=== PATIENT | female | born 1940 | race Caucasian/White ===

== ENCOUNTER → 2019-09-24 12:55 | Outpatient (CLI) | payer MEDICARE, OTHER, SELFPAY ==
--- NOTE | 2019-09-24 | DI.MRI.S_ITS ---
PROCEDURE: MR KNEE RT WO CON INDICATIONS: Unilateral primary osteoarthritis, right knee TECHNIQUE: Noncontrast sagittal PD fast spin echo and T2 fast spin echo with fat saturation, sagittal 3-D FLASH with fat saturation; coronal T1 spin echo and PD fast spin echo with fat saturation, and axial PD fast spin echo with fat saturation through the knee. COMPARISON: None. FINDINGS: Image quality: Excellent. Menisci: Poorly defined circumferential medial meniscal tear, with very macerated appearance of the body, and complete extrusion. Possible meniscal fragments may be within the medial gutter. There is also adjacent large bulky osteophyte Mild truncation of the lateral meniscus free margin. Cruciate ligaments: Anterior cruciate ligament appears intact. Posterior cruciate ligament appears intact. Medial structures: There is medial bowing of the medial collateral ligament, with mild internal signal changes and no complete rupture. There is adjacent soft tissue edema. The appearance could reflect reactive changes to medial compartment pathology, versus low-grade sprain of the MCL. Pes anserinus tendons appear grossly unremarkable. Semimembranosus tendon appears intact. Lateral structures: The lateral collateral ligament intact. Biceps femoris tendon appears intact. Popliteus tendon grossly unremarkable. Iliotibial band appears intact. Anterior structures: Quadriceps tendon intact. Medial and lateral patellofemoral ligaments intact. There is mild patellar tendinopathy. Prepatellar and superficial infrapatellar subcutaneous edema/fluid. Bones and cartilage: No focal marrow contusion or discrete low signal fracture line. Within the medial compartment, full-thickness loss of the femoral and tibial articular cartilage Within the lateral compartment, diffuse partial-thickness loss of the femoral and tibial articular cartilage Within the patellofemoral compartment, diffuse partial-thickness loss of the femoral and tibial articular cartilage Joint space: Moderate joint effusion. Ganglion cyst is incidentally noted at the proximal tibiofibular articulation. Possible small loose bodies versus debris or reactive synovitis seen in the medial aspect of the suprapatellar recess IMPRESSION: Poorly defined circumferential medial meniscal tear, with complete extrusion. Cannot exclude displaced meniscal fragment in the medial gutter. Truncation of the free margin of the lateral meniscal body Severe degenerative joint disease, with full thickness medial compartment articular cartilage loss Moderate joint effusion Possible small loose bodies versus debris and/or reactive synovitis involving the medial aspect of the suprapatellar recess. Dictated by: Shlomo West M.D. on 09/24/2019 at 14:46 Approved by: Shlomo West M.D. on 09/24/2019 at 14:52
== END ==
PROVIDERS: PCP Family Medicine; Referring Provider Orthopaedic Surgery; Visit Provider Orthopaedic Surgery
DX: M17.11 Unilateral primary osteoarthritis, right knee (principal); S83.241A Other tear of medial meniscus, current injury, right knee, initial encounter; M25.461 Effusion, right knee
CPT/HCPCS: 73721

== ENCOUNTER → 2021-03-26 13:33 | Outpatient (CLI) | payer MEDICARE, OTHER, SELFPAY ==
[2021-03-26 16:13] LABS: COVID19 -Nasal RAPID Negative (Negative)
== END ==
PROVIDERS: PCP Family Medicine; Visit Provider Physician Assistant
DX: Z20.822 Contact with and (suspected) exposure to COVID-19 (principal); Z01.812 Encounter for preprocedural laboratory examination
CPT/HCPCS: 87635; C9803

== ENCOUNTER 2021-03-30 08:58 | Observation (INO) | payer MEDICARE, OTHER, SELFPAY ==
[2021-03-28 13:52] VITALS: BMI 41.6
[2021-03-29] VITALS (16 sets, daily range): BP systolic 120–191; BP diastolic 64–96; PULSE 56–84; RESP 13–28; TEMP 35.7–36.6; O2SAT 92–100; BMI 41.6
--- NOTE | 2021-03-29 06:40 | DI.RAD.S_ITS ---
PROCEDURE: XR KNEE RT 1TO2V INDICATIONS: right TKA TECHNIQUE: 2 view(s) of the knee acquired. COMPARISON: None. FINDINGS: Bones: Patient is status post knee joint arthroplasty. Hardware components are in expected positions. Visualized bony structures are intact. Soft tissues: Overlying postoperative changes are noted. IMPRESSION: Expected postoperative appearance. Dictated by: Shlomo West M.D. on 03/29/2021 at 15:24 Approved by: Shlomo West M.D. on 03/29/2021 at 15:24
[2021-03-29] MEDS: PREGABALIN 75 MG CAPSULE PO (09:29)
[2021-03-29] MEDS: ACETAMINOPHEN 325 MG TABLET 975 MG PO (09:30)
[2021-03-29] MEDS: CELECOXIB 200 MG CAPSULE PO (09:30)
[2021-03-29] MEDS: VANCOMYCIN 1,000 MG/200 ML PIGGYBACK 200 MG IV (09:32)
[2021-03-29] MEDS: LACTATED RINGERS 1,000 ML 42 ML IV ×2 (09:35→14:09)
--- NOTE | 2021-03-29 10:55 | PM.PREOP ---
Pre-operative Note COVID-19 COVID-19 status: Negative Interval Note History & Physical reviewed/Exam performed by Physician: Yes Changes to H&P: No
--- NOTE | 2021-03-29 10:56 | PM.OP.1 ---
Operative Date/Time/Diagnoses Date of procedure: 03/29/21 Time of procedure: 11:50 Pre-op diagnosis: Right knee osteoarthritis Post-op diagnosis: same Procedure & Clinicians Procedure: Right total knee arthroplasty Same procedure as scheduled: Yes Indications: The patient has had progressively worsening right knee pain with radiographic changes consistent with arthritis. Non-operative management has failed and the patient has requested total knee replacement. The risks, benefits and alternatives to surgery were discussed with the patient prior to proceeding. Risks discussed included, but were not limited to, failure to relieve pain, stiffness, infection, nerve damage, deep venous thrombosis, pulmonary embolism, stroke, coma, heart attack, permanent paralysis and , as well as the potential need for eventual revision of the prosthetic. Surgeon: Lakshmi Smith Generation Technologist: Nellie Schneider Anesthesia Type: General and Spinal Operative Notes Findings: Severe right knee osteoarthritis, good stability Closure Type: primary Specimen(s): none sent Prosthetic devices, grafts, tissues, transplants, or devices: and Nephew Journey BCS 2 size 5 femur, size 4 tibia, +9 poly, oval 35 mm patella 7.5 mm Applied: drain(s) Estimated Blood Loss (mL): 250 Blood products transfused: none Tourniquet time (min): 80 Procedure in detail: The patient was seen in the pre-operative area, where the patient identified the right knee as the operative site and this was marked with my initials. The patient received pre-operative antibiotics, and was taken to the operating room and placed on the operative table in the supine position. After satisfactory anesthesia, a maritime engineer out was performed. The right leg was encircled with a tourniquet about the proximal thigh, and the leg was prepared from the toes to the tourniquet with ChloroPrep in the usual fashion and draped through sterile drapes. The leg was elevated and exsanguinated with Eschmark bandage and the tourniquet inflated to [250] mmHg pressure. The knee was approached through an approximately 18 cm incision centered over the patella and carried into the knee through a medial parapatellar arthrotomy. A portion of the medial and lateral meniscus was resected. Soft tissue was carefully mobilized around the patella the patella was measured with a caliper. Bone was resected from the patella and the patellar height was reconstituted with up an appropriate sized patellar component. A cover was then placed on the patella. A small amount of additional medial and lateral meniscus was resected. The visionare guide fit well to the distal femur. It looked like an appropriate distal femoral cut and the cut was made without difficulty. The rotation was assessed and the appropriate size femoral guide was placed on the distal femur and finishing cuts were made. There was no evidence of notching. The anterior, posterior and chamfer cuts were then made. The posterior osteophytes and soft tissues were then removed. The posterior capsule was injected with part of a mixture of 60 ml 0.25% Marcaine mixed with 20 ml Exparel for post operative pain control. The remainder of this mixture was injected into the capsule and subcutaneous tissues during cement curing. The tibia was prepared and the visionaire guide fit well to the distal tibia. The rotation was assessed. The patient was placed in extension residual medial and lateral meniscus as well as any residual bone was carefully resected. [No] additional tibia was resected. Hemostasis was achieved especially posteriorly. Additional local was injected into the posterior capsule. The extension gap was assessed and additional releases for gap balancing were performed as necessary. It was checked with the gap food products sales representative. The femoral component was trial was placed and the notch was finished. Trial tibial and femoral components were then placed and the knee placed through a range of motion. Range of motion was [0-130], with good stability throughout the range. The trials were then removed, and the tibia was finished. The bone was prepared with pulsatile lavage, and dried with a sponge. Cement was applied and the final prosthetics placed. Excess cement was removed during and after cement curing. A brief Betadine soak was performed. After confirming there was no extruded cement posteriorly, the final tibial insert was placed. The knee was copiously irrigated and the tourniquet deflated. Hemostasis was obtained with the Bovie. A drain was placed and brought out superolaterally. The capsule was closed with interrupted vicryl suture. The subcutaneous layer was closed with barbed sutures, and the skin with a running 3-0 V-Lock suture and skin kayli. An bonilla Ag dressing was applied and the patient was taken to recovery having tolerated the procedure well. Complications: none Post-operative Condition: stable Disposition: Acute Care Plan for aftercare: The patient will be maintained on a standard total knee replacement protocol with weight bearing as tolerated. The patient will receive aspirin and sequential compression devices for DVT prophylaxis. The patient will be discharged home when safe for the home environment.
[2021-03-29] MEDS: CEFAZOLIN 1 GM VIAL 2 GM IV ×2 (12:10→19:44)
[2021-03-29] MEDS: TRANEXAMIC ACID 1,000 MG VIAL 2000 MG INJ ×2 (12:11→14:05)
[2021-03-29] MEDS: DEXAMETHASONE 4 MG/ML VIAL 5 MG INJ (12:23)
--- NOTE | 2021-03-29 12:44 | SUR.OPER ---
Supine on padded OR bed. Pillow under head, arms secured on padded armboards <90 degree abduction. Safety belt across torso. Non-operative leg secured with tape over blanket over lower leg. Operative leg secured in [place]. Foam padded brace at thigh of operative leg.
[2021-03-29] MEDS: BUPIVACAINE LIPOSOME 266 MG/20 ML VIAL INJ (12:53)
[2021-03-29] MEDS: BUPIVACAINE 0.25% W/ EPI 30 ML VIAL 60 ML INJ (12:53)
[2021-03-29] MEDS: SODIUM CHLORIDE IRRIG SOLUTION 250 ML, POVIDONE-IODINE SPONGE STICKS 1 APPLIC IRR (12:54)
[2021-03-29] MEDS: ONDANSETRON 4 MG/2 ML INJ IV ×3 (14:52→21:29)
[2021-03-29] MEDS: ePHEDrine 50 MG/ML VIAL IM (15:14)
[2021-03-29] MEDS: HALOPERIDOL 5 MG/ML VIAL 1 MG IV ×2 (15:43→15:59)
--- NOTE | 2021-03-29 15:49 | SUR.PHASEI ---
Pt arrived to PACU dry heaving, xray taken of extremety, pt not having any pain, just complaining of nausea, Dr. Pino to bedside, different med ordered and administrated.
--- NOTE | 2021-03-29 16:33 | SUR.PHASEI ---
While in PACU cool wash cloth on foehead, quease ease to bedside and ice pack behind neck to help with nausea. One dose of ondansetron given, ephedrine IM given along wioth Haldol. Nausea finally subsided after 2nd dose of haldol, pt transfered up to room 210. Left in stable condition, nurses and research chef with pt, bed low, locked, scd's on. Pt had one episode of dry heaves in elevator. Call herron in hand.
--- NOTE | 2021-03-29 16:50 | PC.NURSE ---
Addendum entered by Anh Smith R.N. 03/29/21 22:41: Pt unable to take po meds due to nausea. Pt was incontinent of urine. Linen was change and pt now has a brief. Original Note: pt admitted from PACU at 1625. alert to selt, on 2 L NC satting 98%. pt still feeling nauseous but better. SCD's in place. Incision SDI with BOBBY dressing and hemovac. At 1640 Hemovac unclamp. will continue to monitor.
[2021-03-29] MEDS: ONDANSETRON 4 MG ODT PO (17:05)
[2021-03-29] MEDS: LACTATED RINGERS 1,000 ML 100 ML IV (17:05)
--- NOTE | 2021-03-29 23:47 | PC.NURSE ---
Pt wakens easily to voice. Currently denies surgical pain to right knee. Admits to baseline neuropathy to feet BL unchanged postoperatively. Able to ankle wave. BL calf scd's in place. Palpable pedal pulses slightly weaker right foot. Equally cool extremities. Pt currently denies nausea and is taking saltines sparingly. Bowel tones are rare. Abdomen is soft. 02 2L per nc oxygen level 99% per continuous monitor. Pt does admit to snoring with sleep, but has not had sleep study. Head of bed elevated to enhance respiratory effort.
[2021-03-30] VITALS (9 sets, daily range): BP systolic 120–147; BP diastolic 62–70; PULSE 64–74; RESP 14–20; TEMP 35.9–37.1; O2SAT 95–99
[2021-03-30] MEDS: IBUPROFEN 400 MG TABLET PO ×6 (01:28→20:09)
[2021-03-30] MEDS: LACTATED RINGERS 1,000 ML 100 ML IV (01:29)
[2021-03-30] MEDS: CEFAZOLIN 1 GM VIAL 2 GM IV (06:02)
--- NOTE | 2021-03-30 07:10 | PC.NURSE ---
Addendum entered by Jolynn Lee R.N. 03/30/21 09:41: Patient saline locked, tolerating PO fluids and intake, no N/V. Drain discontinued. Patient tolerated. Original Note: Patient A/O x 3, denies pain at this time. Has been tolerating oral intake since 144, denies N/V at this time. RLE dsg CDI, BOBBY intact, HV compressed, unclamped, no drainage. VSS. BS active x 4, no flatus. LR @100cc/hr infusing. Ice pack applied. SCD's on bilaterally. Call light in reach, patient denies needs at this time.
[2021-03-30 07:38] LABS: Hematocrit 37.3 % (36-46); Hemoglobin 12.3 g/dL (12.0-16.0)
--- NOTE | 2021-03-30 08:15 | PM.DS.1 ---
History of Present Illness History of Present Illness Date Patient Seen: 03/30/21 Time Patient Seen: 08:16 Chief complaint: Right Total knee Arthroplasty *OPB* Narrative: The patient is complaining of mild right knee pain this morning, which is well controlled with current pain regimen. Her main concern is nausea and vomiting, which is subsiding this morning. She denies fevers, chills, night sweats. She denies numbness or tingling in bilateral lower extremities, other than her baseline numbness on her left lateral ankle. Overall, she is improving and would like to go home today is safe and cleared by PT and her nausea has subsided Discharge Providers Provider Discharge Date: 03/30/21 Primary care physician: Manuel Woodson MD Consults: 03/29/21 06:40 Consult to Anesthesiology Routine Comment: Consulting Provider: Anesthesiologist Reason for consultation: Regional block for post operative pain control 03/29/21 16:21 Consult to Discharge Planning Routine Comment: Consult to Physical Therapy Evaluate & Treat Comment: Physician Instructions: postop TKA protocol Consult to Respiratory Therapy Evaluate & Treat Comment: Physician Instructions: Evaluate and treat 03/29/21 17:26 Consult to Dietitian, Adult Routine Comment: Reason For Exam: bed fast due to post op nausea and vomiting Discharge provider: Nellie Schneider PA-C Summary Hospital Course Discharge Diagnosis: Right knee osteoarthritis Hospital Course: Procedure: Right total knee arthroplasty Same procedure as scheduled: Yes Indications: The patient has had progressively worsening right knee pain with radiographic changes consistent with arthritis. Non-operative management has failed and the patient has requested total knee replacement. The risks, benefits and alternatives to surgery were discussed with the patient prior to proceeding. Risks discussed included, but were not limited to, failure to relieve pain, stiffness, infection, nerve damage, deep venous thrombosis, pulmonary embolism, stroke, coma, heart attack, permanent paralysis and , as well as the potential need for eventual revision of the prosthetic. Surgeon: Lakshmi Smith Nitriles Lab Technician: Nellie Schneider Anesthesia Type: General and Spinal Operative Notes Findings: Severe right knee osteoarthritis, good stability Closure Type: primary Specimen(s): none sent Prosthetic devices, grafts, tissues, transplants, or devices: and Nephew Journey BCS 2 size 5 femur, size 4 tibia, +9 poly, oval 35 mm patella 7.5 mm Applied: drain(s) Estimated Blood Loss (mL): 250 Blood products transfused: none Tourniquet time (min): 80 Status at Discharge Cognitive/behavioral status at discharge: oriented Functional status at discharge: uses cane/walker Overall status at discharge: patient is progressing back to baseline Exam Vital Signs (past 8 hours): - 03/30/21 05:57 Temperature 98.0 F Pulse Rate 70 Respiratory Rate 16 Blood Pressure 141/70 H Pulse Oximetry 96 Oxygen Delivery Method Room Air,Nasal Cannula Oxygen Flow Rate 2 Narrative Exam Narrative: Pleasant 81-year-old female, resting comfortably in bed, in no acute distress. Incision is clean, dry, intact. Bilateral calves are soft, nontender to palpation. Bilateral lower extremities with grossly normal motor functions. Sensation is mildly decreased on the left lateral ankle, which the patient states is her baseline. Objective Labs Result Diagrams: 03/30/21 06:58 Labs: Laboratory Results - last 24 hr 03/30/21 06:58 Hgb 12.3 Hct 37.3 PFSH Medical History Breast cancer, left (2014) Diverticulitis Dupuytrens contracture Easy bruisability HLD (hyperlipidemia) HTN (hypertension) IBS (irritable bowel syndrome) Jaundice Lower back pain Neuropathy Osteoarthritis Pneumonia PONV (postoperative nausea and vomiting) Surgical History History of arthroplasty of left knee History of carpal tunnel surgery of right wrist History of hysterectomy History of lumpectomy of left breast (2014) History of surgery Hx of abdominal surgery Hx of appendectomy Hx of bilateral cataract extraction Hx of cholecystectomy Hx of hemorrhoidectomy Hx of tonsillectomy Social History household members: spouse Smoking Status: Never smoker alcohol intake: current Discharge Assessment & Plan Assessment and Plan Assessment: Patient is progressing as expected status post right total knee arthroplasty Plan of Treatment: Weight-bearing as tolerated with front wheel walker. Use Tylenol and ibuprofen as needed for pain, tramadol if severe pain. Zofran as needed for nausea Discharge home today, when cleared by PT and nausea has improved Discharge Plan Discharge Plan Patient Disposition: Home Discharge orders & Medications Discharge Orders: Discharge (Order); Ordered 03/30/21 Ordered By: Nellie Schneider Prescriptions: New acetaminophen 500 mg capsule 500 mg PO Q4H PRN (Reason: pain) Qty: 90 RF: 0 aspirin 81 mg Tablet,Delayed Release (Dr/Ec) 81 mg PO BID PRN (Reason: Prevent blood clots [id number]) Qty: 90 RF: 0 ondansetron 4 mg Tablet,Disintegrating 4 mg PO Q4HR PRN (Reason: Nausea) Qty: 20 RF: 0 tramadol 50 mg Tablet 50 mg PO QID PRN (Reason: Pain, Moderate (4-6)) Qty: 42 RF: 0 Continued atorvastatin 20 mg Tablet 20 mg PO DAILY RF: 0 ibuprofen 800 mg Tablet 800 mg PO DAILY PRN (Reason: Pain) RF: 0 lisinopril 5 mg Tablet 5 mg PO BID RF: 0 metoprolol succinate 25 mg Tablet Extended Release 24 Hr 25 mg PO DAILY RF: 0 Follow up/Referrals: Manuel Woodson MD [Primary Care Provider] - Lakshmi Smith MD [Physician] - (10-14 days for postoperative visit) Diet/Activity/Treatments Diet: Diet as Tolerated and Regular Activity: Weight-bearing as tolerated with front wheel walker Continue with home exercises Cold/Heat Therapy: Use ice as needed for pain, protect skin Other treatments: Aspirin 81 mg twice daily x6 weeks to prevent blood clots Skin/Wound/Dressing Care Report to your healthcare provider any signs of infection, such as:: chills, fever, night sweats, unusual drainage and unusual redness Dressing: Okay to shower after 48 hours. Please call the office if dressing becomes wet, soiled, saturated. Visit Report/Discharge Packet Instructions: DI for Knee Replacement Stand Alone Forms: Surgery Discharge Discharge Data Primary Care Provider: Manuel Woodson Attending Provider: Lakshmi Smith Quality VTE Deep Vein Thrombosis/Pulmonary Embolism Present on Admission: Yes
[2021-03-30] MEDS: ASPIRIN EC 81 MG TABLET PO ×2 (09:01→20:09)
[2021-03-30] MEDS: ATORVASTATIN 20 MG TABLET PO (09:01)
[2021-03-30] MEDS: DOCUSATE 100 MG CAPSULE PO ×2 (09:01→20:09)
[2021-03-30] MEDS: lisinopriL 5 MG TABLET PO ×2 (09:01→20:09)
[2021-03-30] MEDS: ACETAMINOPHEN 325 MG TABLET 650 MG PO ×3 (09:01→20:09)
[2021-03-30] MEDS: METOPROLOL ER 25 MG TABLET PO (09:02)
--- NOTE | 2021-03-30 09:40 | PT.IIE ---
Current Diagnoses Unilateral primary osteoarthritis, right knee (03/30/21) Surgery Performed Operation Date: 03/29/21 11:30 Actual Procedures p Total Knee Arthroplasty, Left Knee Cortisone Injection(Right) - Lakshmi Smith MD Medical History (Last Reviewed 03/30/21 @ 08:19 by Nellie Schneider PA-C) Breast cancer, left (2014) Diverticulitis Dupuytrens contracture Easy bruisability HLD (hyperlipidemia) HTN (hypertension) IBS (irritable bowel syndrome) Jaundice Lower back pain Neuropathy Osteoarthritis Pneumonia PONV (postoperative nausea and vomiting) Physical Therapy Inpatient Evaluation/Re-Eval M1 PT/OT-IP Prior Functional Status Start: 03/30/21 13:23 Freq: NEEDED Status: Active Protocol: Document 03/30/21 09:40 AB (Rec: 03/30/21 13:39 AB [email or web address]) Medical Review Prior Functional Status Medical History Reviewed Yes Communication able to make needs known Mobility and Gait pt stated that she is independent with all mobilities and ambulation using SPC Social History Household Members spouse Living Arrangements Apartment/Condo Number of Floors (Floors) One Floor Number of Stairs To Enter/Railing? pt lives at a 2nd level apartment with an elevator to get to her floor; no steps to enter Home Environment High Toilet,Walk in Shower, Elevator Home Equipment Front Wheel Walker,Straight Cane,Raised Toilet Seat Without Armrests,Shower Seat without Backrest,Hand Held Shower,Grab Bars In Shower Additional Social History Comment stated that her friend who was an NAC can also stay with her to assist her M2 PT-IP Current Condition Start: 03/30/21 13:23 Freq: NEEDED Status: Active Protocol: Document 03/30/21 09:40 AB (Rec: 03/30/21 13:39 AB [email or web address]) Physical Therapy Current Condition Current Condition Evaluation Date 03/30/21 Treatment Diagnosis s/p R TKA; difficulty in walking Onset Date 03/29/21 Weight Bearing Status Weight Bearing Status Weight Bear as Tolerated Allowed Weight Bearing Amount (enter % RLE WBAT or #) (%) M3 PT-IP Subjective Start: 03/30/21 13:23 Freq: NEEDED Status: Active Protocol: Document 03/30/21 09:40 AB (Rec: 03/30/21 13:39 AB [id number]) Subjective Physical Therapy Visit Type Type Initial Evaluation Visit Start Time 09:40 Visit Stop Time 10:45 Total Visit Minutes 65 Number of INFANTRY WEAPONS CREWMEMBER Visits 0 Physical Therapy Visit Comments Patient Comments pt is agreeable to do PT Therapy Pain Assessment Pain When Pain Assessed At Rest Pain Present Pain Present Pain Reported Location Right Knee Intensity 1 Scale Used pain increases to 5/10 with mobility Pain Management Techniques Apply Cold,Distraction, Modification of Treatment,Re- positioning,Timing of Activity with Medications M4 PT-IP Mobility and Gait Start: 03/30/21 13:23 Freq: NEEDED Status: Active Protocol: Document 03/30/21 09:40 AB (Rec: 03/30/21 13:39 [id number]) PT-Bed Mobility Assessment Supine to Sit Supine to Sit Standby Assistance PT-Transfer Assessment Sit to and From Stand Sit to and from Stand Moderate Assistance,1 Person Assistance,Use of Upper Extremities Equipment Transfer Assistive Device Gait Belt,Front Wheeled Walker Orthotic/Prosthetic Devices or Brace: No Transfers Transfer Destination Toilet Transfer Technique ambulated Transfer Ability Level of Assist Moderate Assistance,1 Person Assistance,Use of Upper Extremities Comments Mobility Comments completed supine to sit SBA. able to sit on EOB SBA. completed sit to stand mod A and max cues. required 2 attempts to complete task. c/ o increase knee pain. pt requested to use the toilet. ambulated to the toilet using FWW mod A and cues. presents with very slow anson, antalgic gait and decrease LE elevation and step length. required mod A for controlled descent to the toilet. completedsit to stand from the toilet using grab bar and FWW mod A and max cues. mod A for standing balance while completing hygiene care and brief management. ambulated from the toilet to the chair mod A using FWW. c/o nausea midway ambulation. positioned on chair. call light and table placed within reach. set up caregiver training for the afternoon. pt stated that she will see if her spouse or caregiver can come in for training. Gait Assessment Gait Gait Assistance Required: Moderate Assistance Distance (Feet) 10 Able to Maintain Weight Bearing Status Yes During Gait Assistive Devices Assistive Device Gait Belt,Front Wheeled Walker Orthotic/Prosthetic Devices or Brace: No Gait Deviations General Gait Pattern Antalgic,Decreased Stride Length,Decreased Feet Clearance,Step-to Gait Factors Limiting Gait Function Factors Limiting Gait Function Decreased Activity Tolerance, Decreased Strength,Limited Range of Motion,Pain,Poor Balance PT-Balance Assessment Sitting Balance and Reactions Static Sitting Balance Ability Good Dynamic Sitting Balance Ability Fair Standing Balance and Reactions Static Standing Balance Ability Fair Dynamic Standing Balance Ability Poor Device Used FWW M5 PT-IP Objective Assessments Start: 03/30/21 13:23 Freq: NEEDED Status: Active Protocol: Document 03/30/21 09:40 AB (Rec: 03/30/21 13:39 AB [id number]) Orientation Orientation/Cognition Level of Alertness Alert Orientation Name,Age,Birthday,Month,Date, Year,Day of Week,Place, Situation Language Function Ability No Deficits Noted Safety Awareness Decreased Safety Awareness Memory Description No Deficits Noted Gross Range of Motion Lower Extremity ROM Assessment Right Impaired Impairments R knee flexion: ~ 70 deg R knee extension: 15 deg less to 0 Strength Lower Extremity Strength Assessment Right Impaired Hip 3+/5 Knee 3+/5 Coordination Assessment Gross Coordination Gross Coordination WNL Sensation Assessment Sensation Gross Sensation WNL Muscle Tone Muscle Tone WNL Yes M6 PT-IP Treatment Start: 03/30/21 13:23 Freq: NEEDED Status: Active Protocol: Document 03/30/21 09:40 AB (Rec: 03/30/21 13:39 AB [email or web address]) Physical Therapy Treatment Education Education Provided Precautions,Weight Bearing Status,Post-Op Packet,Safety M7 PT-IP Assessment and Plan Start: 03/30/21 13:23 Freq: NEEDED Status: Active Protocol: Document 03/30/21 09:40 AB (Rec: 03/30/21 13:39 AB [email or web address]) PT Summary Assessment and Plan Potential Rehabilitation Potential Good Status of Condition at Evaluation Evolving Summary Impairments Pain,ROM,Strength,Balance, Coordination,Sensation,Tone, Cognition,Bed Mobility, Transfers,Gait,Activity Tolerance Assessment Summary pt requiring mod A with sit to stand and ambulation using FWW. presents with decrease activity tolerance and has to rest after toilet transfers and c/o nausea. informed pt regarding caregiver training this afternoon but pt will see if either spouse or friend can come in. will continue to assess progress. Goals Bed Mobility Goal Independent Transfer Goal Independent,Front Wheeled Walker Gait Goal Independent,Front Wheel Walker Gait Distance 150 Days to Meet Goals 5 Frequency of Treatment Frequency Of Treatment Twice a Day Treatment Plan Physical Therapy Treatment Plan Bed Mobility Training,Transfer Training,Gait Training, Therapeutic Exercise,Balance Retraining,Post Op Education, Discharge Planning,Hot or Cold Pack,Neuromuscular Re-ed, Coordination Retraining,Manual Therapy Precautions Other Precautions RLE WBAT Recommendations To Nursing Amount of Assist Needed 1 Person Assist Discharge Recommendations PT Discharge Recommendations Home with 17/02 Assist Available,Home Health Transportation Needs at Discharge Private Vehicle,Wheelchair/ Cabulance
[2021-03-30] MEDS: TRAMADOL 50 MG TABLET PO ×2 (13:06→22:28)
--- NOTE | 2021-03-30 13:59 | PT.IPTN ---
Current Diagnoses Unilateral primary osteoarthritis, right knee (03/30/21) Surgery Performed Operation Date: 03/29/21 11:30 Actual Procedures p Total Knee Arthroplasty, Left Knee Cortisone Injection(Right) - Lakshmi Smith MD Physical Therapy Treatment Note M2 PT-IP Current Condition Start: 03/30/21 13:23 Freq: NEEDED Status: Active Protocol: Document 03/30/21 09:40 AB (Rec: 03/30/21 13:39 AB [email or web address]) Physical Therapy Current Condition Current Condition Evaluation Date 03/30/21 Treatment Diagnosis s/p R TKA; difficulty in walking Onset Date 03/29/21 Weight Bearing Status Weight Bearing Status Weight Bear as Tolerated Allowed Weight Bearing Amount (enter % RLE WBAT or #) (%) M3 PT-IP Subjective Start: 03/30/21 13:23 Freq: NEEDED Status: Active Protocol: Document 03/30/21 13:59 AB (Rec: 03/30/21 16:32 AB [email or web address]) Subjective Physical Therapy Visit Type Type Treatment Note Visit Start Time 13:59 Visit Stop Time 14:45 Total Visit Minutes 46 Number of SAP BASIS Visits 0 Physical Therapy Visit Comments Patient Comments pt is agreeable to do PT; pt's caregiver friend in room for training Therapy Pain Assessment Pain When Pain Assessed At Rest Pain Present Pain Present Pain Reported Location Right Knee Intensity 3 Scale Used increases to 7/10 with mobility Pain Management Techniques Apply Cold,Distraction, Modification of Treatment,Re- positioning,Timing of Activity with Medications M4 PT-IP Mobility and Gait Start: 03/30/21 13:23 Freq: NEEDED Status: Active Protocol: Document 03/30/21 13:59 AB (Rec: 03/30/21 16:32 AB [id number]) PT-Bed Mobility Assessment Sit to Supine Sit to Supine Standby Assistance Scooting Scooting to Edge of Bed Standby Assistance PT-Transfer Assessment Sit to and From Stand Sit to and from Stand Minimal Assistance,Moderate Assistance,1 Person Assistance ,Use of Upper Extremities Equipment Transfer Assistive Device Gait Belt,Front Wheeled Walker Orthotic/Prosthetic Devices or Brace: No Transfers Transfer Destination Bed Transfer Technique ambulated using FWW Transfer Ability Level of Assist Minimal Assistance,Moderate Assistance,1 Person Assistance ,Use of Upper Extremities Comments Mobility Comments pt sitting on chair and friend in room. caregiver training conducted. educated caregiver on how to use safety belt and how to assist pt. caregiver was able to put safety belt on , assisted pt with sit to stand and ambulation ~ 15 ft using FWW but pt has to sit down and sat on EOB. pt c/o increase knee pain and fatigue . pt rested. educated pt and caregiver on pt's equipement needs and understood. also informed regarding low activity tolerance affecting mobility independence. recommending resting stations at home. pt and caregiver agreed. pt ambulated again in room after resting using FWW min to mod A ~ 20 ft. requested to go back to bed. completed sit to supine SBA and cues. positioned in bed. call light and table placed within reach . ice pack provided. Gait Assessment Gait Gait Assistance Required: Minimum Assistance,Moderate Assistance,1 Person Assist Distance (Feet) 15 Able to Maintain Weight Bearing Status No During Gait Assistive Devices Assistive Device Gait Belt,Front Wheeled Walker Orthotic/Prosthetic Devices or Brace: No Gait Deviations General Gait Pattern Antalgic,Decreased Stride Length,Decreased Feet Clearance,Step-to Gait Factors Limiting Gait Function Factors Limiting Gait Function Decreased Activity Tolerance, Decreased Strength,Limited Range of Motion,Pain,Poor Balance,Poor Safety Awareness M5 PT-IP Objective Assessments Start: 03/30/21 13:23 Freq: NEEDED Status: Active Protocol: Document 03/30/21 09:40 AB (Rec: 03/30/21 13:39 AB [email or web address]) Orientation Orientation/Cognition Level of Alertness Alert Orientation Name,Age,Birthday,Month,Date, Year,Day of Week,Place, Situation Language Function Ability No Deficits Noted Safety Awareness Decreased Safety Awareness Memory Description No Deficits Noted Gross Range of Motion Lower Extremity ROM Assessment Right Impaired Impairments R knee flexion: ~ 70 deg R knee extension: 15 deg less to 0 Strength Lower Extremity Strength Assessment Right Impaired Hip 3+/5 Knee 3+/5 Coordination Assessment Gross Coordination Gross Coordination WNL Sensation Assessment Sensation Gross Sensation WNL Muscle Tone Muscle Tone WNL Yes M6 PT-IP Treatment Start: 03/30/21 13:23 Freq: NEEDED Status: Active Protocol: Document 03/30/21 13:59 AB (Rec: 03/30/21 16:32 AB [id number]) Physical Therapy Treatment Exercises Exercises Heel Slides Education Education Provided Safety Other Treatments Other Treatment Performed educated caregiver regarding pt's HEP M7 PT-IP Assessment and Plan Start: 09/03/21 13:23 Freq: NEEDED Status: Active Protocol: Document 03/30/21 13:59 AB (Rec: 03/30/21 16:32 AB [id number]) PT Summary Assessment and Plan Potential Rehabilitation Potential Good Summary Impairments Pain,ROM,Strength,Balance, Coordination,Sensation,Tone, Cognition,Bed Mobility, Transfers,Gait,Activity Tolerance Progress Towards Goals Slow Progress due to Pain,Slow Progress due to Activity Tolerance Assessment Summary caregiver training conducted and caregiver was able to assist pt with transfers and ambulation. pt continues to have decrease activity tolerance and was only able to ambulate 15-20 ft using FWW min to mod A. pt needs to be able to tolerate more activity and ambulate farther to be able to safely go home. pt has ~ 50 ft from the care to get into the house. informed nurse. will continue to assess progress. Goals Bed Mobility Goal Independent Transfer Goal Independent,Front Wheeled Walker Gait Goal Independent,Front Wheel Walker Gait Distance 150 Days to Meet Goals 5 Frequency of Treatment Frequency Of Treatment Twice a Day Treatment Plan Physical Therapy Treatment Plan Bed Mobility Training,Transfer Training,Gait Training, Therapeutic Exercise,Balance Retraining,Post Op Education, Discharge Planning,Hot or Cold Pack,Neuromuscular Re-ed, Coordination Retraining,Manual Therapy Precautions Other Precautions RLE WBAT Recommendations To Nursing Amount of Assist Needed 1 Person Assist Discharge Recommendations PT Discharge Recommendations Home with 17/02 Assist Available,Home Health Transportation Needs at Discharge Private Vehicle,Wheelchair/ Cabulance
--- NOTE | 2021-03-30 15:50 | CM.IDA ---
Addendum entered by JUDY Shaffer 03/30/21 16:03: According to PT Dior, patient will remain here this evening, likely DC home tomorrow, would benefit from HH. Unsure what agency travels to [place] for HH, will research Original Note: Initial DCP Assessment Note Pt is an 81 yo female, resident of [place], now POD#1 from Rt knee surgery by PCP: Manuel Woodson Payer: NANCY/Iris Reviewed chart, met w/patient to introduce role and review DCP. Patient lives at home w/spouse, who is very [place]. 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 JUDY Shaffer
--- NOTE | 2021-03-30 17:55 | DIET.CONS ---
Dietary Consultation Note Admission Date: 03/30/2021 08:58 Assessment: Nutrition cx for n/v post op. Torrie reports this had subsided this morning and is able to eat adequately. No further nutrition intervention needed. Monitoring/Evaluations: consult BATSHEVA frederick
[2021-03-31] MEDS: IBUPROFEN 400 MG TABLET PO ×2 (03:13→08:06)
[2021-03-31 03:25] VITALS: BP 163/74; PULSE 69; RESP 18; TEMP 36.1; O2SAT 98
--- NOTE | 2021-03-31 04:54 | PC.NURSE ---
Pt is A and O x 4, VSS, able to sleep and eat and void. Uses FWW to BR, steady gait. Rates px 3/10 gets adequate relief from ibuprofen. LS clear, S1, S2. +BTs. Javid dressing CDI and BOBBY green.
[2021-03-31 07:00] VITALS: BP 147/72; PULSE 65; RESP 19; TEMP 35.8; O2SAT 97
[2021-03-31 08:06] VITALS: BP 147/72; PULSE 65
[2021-03-31] MEDS: ACETAMINOPHEN 325 MG TABLET 650 MG PO (08:06)
[2021-03-31] MEDS: ATORVASTATIN 20 MG TABLET PO (08:06)
[2021-03-31] MEDS: lisinopriL 5 MG TABLET PO (08:06)
[2021-03-31] MEDS: DOCUSATE 100 MG CAPSULE PO (08:06)
[2021-03-31] MEDS: ASPIRIN EC 81 MG TABLET PO (08:06)
--- NOTE | 2021-03-31 08:33 | P.DS_ITS ---
History of Present Illness History of Present Illness Date Patient Seen: 03/31/21 Time Patient Seen: 08:33 Chief complaint: Right Total knee Arthroplasty *OPB* Narrative: Refer to previous HPI. Discharge Providers Provider Date of admission: 03/30/21 08:58 Discharge Date: 03/31/21 Primary care physician: Manuel Woodson MD Consults: 03/29/21 06:40 Consult to Anesthesiology Routine Comment: Consulting Provider: Anesthesiologist Reason for consultation: Regional block for post operative pain control 03/29/21 16:21 Consult to Discharge Planning Routine Comment: Consult to Physical Therapy Evaluate & Treat Comment: Physician Instructions: postop TKA protocol Consult to Respiratory Therapy Evaluate & Treat Comment: Physician Instructions: Evaluate and treat 03/29/21 17:26 Consult to Dietitian, Adult Routine Comment: Reason For Exam: bed fast due to post op nausea and vomiting Discharge provider: Rodger Be PA-C Summary Hospital Course Discharge Diagnosis: Right knee osteoarthritis Status post right total knee arthroplasty Hospital Course: Patient was admitted to the hospital following the above-listed procedure for the above-listed diagnosis. Following the procedure the patient has been convalescing appropriately in her pain has been managed with current pain management regimen. Aspirin 81 mg twice daily has been administered for DVT prophylaxis along the assistance of sequential compression devices. Throughout the course of time hospital the patient has denied fever, chills, nausea, chest pain, shortness of breath, or urinary retention. Patient has successfully worked on ambulation with the assistance of a front wheeled walker and stair Ford with physical therapy. Pepe dressing over the incision site has remained clean, dry, intact, and functioning following surgery. Patient has remained in standard total knee replacement protocol. Status at Discharge Cognitive/behavioral status at discharge: oriented Functional status at discharge: uses cane/walker Overall status at discharge: patient is progressing back to baseline Exam Vital Signs (past 8 hours): - 03/31/21 03:25 03/31/21 07:00 03/31/21 08:06 Temperature 97 F L 96.5 F L Pulse Rate 69 65 65 Respiratory Rate 18 19 Blood Pressure 163/74 H 147/72 H 147/72 H Pulse Oximetry 98 97 Oxygen Delivery Method Room Air Oxygen Flow Rate 0 Narrative Exam Narrative: Pleasant 81-year-old female postop day 2 status post right total knee arthroplasty. Patient is resting comfortably in bed, is in no acute distress, is alert and oriented x3. Skin is warm and dry, skin surrounding the incision site is free of erythema, warmth, induration, or discharge. Pepe dressing over the incision site is clean, dry, intact, and functioning. Good sensation appreciated throughout the bilateral lower extremities to light touch. Ankle dorsiflexion, plantar flexion, eversion, inversion performed bilaterally without difficulty or discomfort. Calves are soft and nontender, negative Homans sign. DP pulses palpated bilaterally and are even. No other signs of DVT appreciated. Const General: cooperative, healthy appearing and comfortable Resp Effort & Inspection: normal respiratory effort and able to speak in complete sentences Skin General: no rashes or lesions noted Objective Labs Result Diagrams: 03/30/21 06:58 PFSH Medical History Breast cancer, left (2014) Diverticulitis Dupuytrens contracture Easy bruisability HLD (hyperlipidemia) HTN (hypertension) IBS (irritable bowel syndrome) Jaundice Lower back pain Neuropathy Osteoarthritis Pneumonia PONV (postoperative nausea and vomiting) Surgical History History of arthroplasty of left knee History of carpal tunnel surgery of right wrist History of hysterectomy History of lumpectomy of left breast (2014) History of surgery Hx of abdominal surgery Hx of appendectomy Hx of bilateral cataract extraction Hx of cholecystectomy Hx of hemorrhoidectomy Hx of tonsillectomy Social History household members: spouse Smoking Status: Never smoker alcohol intake: current Discharge Assessment & Plan Assessment and Plan Assessment: Patient is progressing as expected status post right total knee arthroplasty Plan of Treatment: Weight-bearing as tolerated with front wheel walker. Use Tylenol and ibuprofen as needed for pain, tramadol if severe pain. Zofran as needed for nausea Discharge home today, when cleared by PT and nausea has improved Discharge Plan Discharge Plan Patient Disposition: Home Provider Discharge Comment: Patient cleared for discharge pending PT clearance. Discharge orders & Medications Prescriptions: New acetaminophen 500 mg capsule 500 mg PO Q4H PRN (Reason: pain) Qty: 90 RF: 0 aspirin 81 mg Tablet,Delayed Release (Dr/Ec) 81 mg PO BID PRN (Reason: Prevent blood clots [id number]) Qty: 90 RF: 0 ondansetron 4 mg Tablet,Disintegrating 4 mg PO Q4HR PRN (Reason: Nausea) Qty: 20 RF: 0 tramadol 50 mg Tablet 50 mg PO QID PRN (Reason: Pain, Moderate (4-6)) Qty: 42 RF: 0 Continued atorvastatin 20 mg Tablet 20 mg PO DAILY RF: 0 ibuprofen 800 mg Tablet 800 mg PO DAILY PRN (Reason: Pain) RF: 0 lisinopril 5 mg Tablet 5 mg PO BID RF: 0 metoprolol succinate 25 mg Tablet Extended Release 24 Hr 25 mg PO DAILY RF: 0 Follow up/Referrals: Manuel Woodson MD [Primary Care Provider] - Lakshmi Smith MD [Physician] - (10-14 days for postoperative visit) Diet/Activity/Treatments Diet: Diet as Tolerated and Regular Activity: Weight-bearing as tolerated with front wheel walker Continue with home exercises Cold/Heat Therapy: Use ice as needed for pain, protect skin Other treatments: Aspirin 81 mg twice daily x6 weeks to prevent blood clots Skin/Wound/Dressing Care Report to your healthcare provider any signs of infection, such as:: chills, fe sebastien, night sweats, unusual drainage and unusual redness Dressing: Okay to shower after 48 hours. Please call the office if dressing becomes wet, soiled, saturated. Visit Report/Discharge Packet Instructions: DI for Knee Replacement Stand Alone Forms: Surgery Discharge Discharge Data Primary Care Provider: Manuel Woodson Attending Provider: Lakshmi Smith Quality VTE Deep Vein Thrombosis/Pulmonary Embolism Present on Admission: Yes
[2021-03-31 09:42] VITALS: BP 147/72; PULSE 65
[2021-03-31] MEDS: METOPROLOL ER 25 MG TABLET PO (09:42)
--- NOTE | 2021-03-31 09:47 | PT.IPTN ---
Current Diagnoses Unilateral primary osteoarthritis, right knee (03/30/21) Surgery Performed Operation Date: 03/29/21 11:30 Actual Procedures p Total Knee Arthroplasty, Left Knee Cortisone Injection(Right) - Lakshmi Smith MD Physical Therapy Treatment Note M2 PT-IP Current Condition Start: 03/30/21 13:23 Freq: NEEDED Status: Active Protocol: Document 03/30/21 09:40 AB (Rec: 03/30/21 13:39 AB [id number]) Physical Therapy Current Condition Current Condition Evaluation Date 03/30/21 Treatment Diagnosis s/p R TKA; difficulty in walking Onset Date 03/29/21 Weight Bearing Status Weight Bearing Status Weight Bear as Tolerated Allowed Weight Bearing Amount (enter % RLE WBAT or #) (%) M3 PT-IP Subjective Start: 03/30/21 13:23 Freq: NEEDED Status: Active Protocol: Document 03/31/21 09:21 CLB (Rec: 03/31/21 10:53 CLB [id number]) Subjective Physical Therapy Visit Type Type Treatment Note Visit Start Time 09:21 Visit Stop Time 09:47 Total Visit Minutes 26 Number of CORN GRINDER Visits 1 Physical Therapy Visit Comments Patient Comments Pt agreeable to do therapy Therapy Pain Assessment Pain When Pain Assessed At Rest Pain Present Pain Present Denied Pain Location Right Knee Intensity 0 Scale Used 5/10 during exercise. Pain Management Techniques Apply Cold,Distraction, Modification of Treatment,Re- positioning,Timing of Activity with Medications M4 PT-IP Mobility and Gait Start: 03/30/21 13:23 Freq: NEEDED Status: Active Protocol: Document 03/31/21 09:21 CLB (Rec: 03/31/21 10:53 CLB [id number]) PT-Bed Mobility Assessment Supine to Sit Supine to Sit Standby Assistance Scooting Scooting to Edge of Bed Standby Assistance PT-Transfer Assessment Sit to and From Stand Sit to and from Stand Standby Assistance,1 Person Assistance,Use of Upper Extremities Equipment Transfer Assistive Device Gait Belt,Front Wheeled Walker Orthotic/Prosthetic Devices or Brace: No Transfers Transfer Destination Chair,Toilet Transfer Technique ambulated using FWW Transfer Ability Level of Assist Standby Assistance,1 Person Assistance,Use of Upper Extremities Comments Mobility Comments Pt in bed performing HS, pt able to get to EOB SBA, pt stood SBA and ambulated to BR SBA w/FWW. Pt able to sit<> stand with use of wall rail and rama/doff brief. Pt ambulate SBA to toilet and washed her hands requiring SBA for standing balance. Pt ambulated in delgado ~100ft w/FWW /SBA with small step thru gait pattern. Pt returned to room sitting in chair SBA and performed seated HS, knee flx/ ext, quad sets, and educated on importance of AP's. Pt left in reclined chair with all needs within reach and ice pack. RN informed of pt progress. Gait Assessment Gait Gait Assistance Required: Standby Assistance,1 Person Assist Distance (Feet) 100 Able to Maintain Weight Bearing Status No During Gait Assistive Devices Assistive Device Gait Belt,Front Wheeled Walker Orthotic/Prosthetic Devices or Brace: No Gait Deviations General Gait Pattern Antalgic,Decreased Stride Length,Decreased Feet Clearance Factors Limiting Gait Function Factors Limiting Gait Function Decreased Activity Tolerance, Decreased Strength,Limited Range of Motion,Pain,Poor Balance M5 PT-IP Objective Assessments Start: 03/30/21 13:23 Freq: NEEDED Status: Active Protocol: Document 03/30/21 09:40 AB (Rec: 03/30/21 13:39 AB [id number]) Orientation Orientation/Cognition Level of Alertness Alert Orientation Name,Age,Birthday,Month,Date, Year,Day of Week,Place, Situation Language Function Ability No Deficits Noted Safety Awareness Decreased Safety Awareness Memory Description No Deficits Noted Gross Range of Motion Lower Extremity ROM Assessment Right Impaired Impairments R knee flexion: ~ 70 deg R knee extension: 15 deg less to 0 Strength Lower Extremity Strength Assessment Right Impaired Hip 3+/5 Knee 3+/5 Coordination Assessment Gross Coordination Gross Coordination WNL Sensation Assessment Sensation Gross Sensation WNL Muscle Tone Muscle Tone WNL Yes M6 PT-IP Treatment Start: 03/30/21 13:23 Freq: NEEDED Status: Active Protocol: Document 03/31/21 09:21 CLB (Rec: 03/31/21 10:53 CLB [id number]) Physical Therapy Treatment Exercises Exercises Ankle Pumps,Quad Sets,Heel Slides,Seated Knee Flexion/ Extension Education Education Provided Safety M7 PT-IP Assessment and Plan Start: 03/30/21 13:23 Freq: NEEDED Status: Active Protocol: Document 03/31/21 09:21 CLB (Rec: 03/31/21 10:53 CLB [id number]) PT Summary Assessment and Plan Potential Rehabilitation Potential Good Summary Impairments Pain,ROM,Strength,Balance, Coordination,Sensation,Tone, Cognition,Bed Mobility, Transfers,Gait,Activity Tolerance Progress Towards Goals Progressing Toward Goals Assessment Summary Pt is SBA for all mobility and able to ambulate ~100ft w/FWW /SBA. Pt seems able to d/c home with assist when medically stable. Goals Bed Mobility Goal Independent Transfer Goal Independent,Front Wheeled Walker Gait Goal Independent,Front Wheel Walker Gait Distance 150 Days to Meet Goals 5 Frequency of Treatment Frequency Of Treatment Twice a Day Treatment Plan Physical Therapy Treatment Plan Bed Mobility Training,Transfer Training,Gait Training, Therapeutic Exercise,Balance Retraining,Post Op Education, Discharge Planning,Hot or Cold Pack,Neuromuscular Re-ed, Coordination Retraining,Manual Therapy Precautions Other Precautions RLE WBAT Recommendations To Nursing Amount of Assist Needed 1 Person Assist Discharge Recommendations PT Discharge Recommendations Home with 24/ Assist Available,Home Health Transportation Needs at Discharge Private Vehicle
--- NOTE | 2021-03-31 10:25 | CM.DPNOTE ---
DC Note DC home today w/friend Martha and family to assist, cleared by therapy team JW
--- NOTE | 2021-03-31 12:30 | PC.NURSE ---
Pt ready for d/c to home. IV removed. Instructed on medications, NSAID use, activity, follow up, s/s of infection and stroke. Patient with no questions at this time. Pt d/c to home with spouse. Escorted down via wc with COVER MARKER and spouse.
== END 2021-03-31 12:32 | disposition home or self-care (01) ==
LOC: OR 09:26 → AC 09:26
PROVIDERS: Admitting Provider Orthopaedic Surgery; PCP Family Medicine; Referring Provider Orthopaedic Surgery; Visit Provider Orthopaedic Surgery
PROC: 0SRC0JZ Replacement of Right Knee Joint with Synthetic Substitute, Open Approach (ICD-10-PCS; CPT 27447; principal; 2021-03-29 11:30)
DX: M17.11 Unilateral primary osteoarthritis, right knee (principal); M25.462 Effusion, left knee; Z96.652 Presence of left artificial knee joint; I10 Essential (primary) hypertension; K21.9 Gastro-esophageal reflux disease without esophagitis; E66.01 Morbid (severe) obesity due to excess calories; Z68.41 Body mass index [BMI] 40.0-44.9, adult
CPT/HCPCS: 20610; 27447; 36415; 73560; 85014; 85018; 94762; 97116; 97162; 97530; C1776; G0378; C9290; J0690; J1100; J1630; J2274; J2405; J2704